=== PATIENT | male | born 1950 | race Caucasian/White ===

== ENCOUNTER 2016-11-18 20:33 | Inpatient (IN) | payer OTHER ==
[2016-11-18 22:09] VITALS: BMI 26.4
--- NOTE | 2016-11-18 23:53 | HP ---
COWS - Scale Resting Pulse: 0= [place] 80 or Below Sweatin= Chills/Flushing Restless Observation: 3= Extraneous Movement Pupil Size: 0= Normal to Room Light Bone or Joint Aches: 1= Mild Discomfort Runny Nose/ Eye Tearin= Runny Nose/Eyes GI Upset > 30mins: 1= Stomach Cramp Tremor Observation: 2= Slight Tremor Visible Yawning Observation: 2= >3x During Session Anxiety or Irritability: 2=Irritable/Anxious Goose Flesh Skin: 3=Piloerection COWS Score: 17 Admission ROS S - [facility] Chief Complaint: WITHDRAWAL SYMPTOMS Allergies/Adverse Reactions: Allergies Allergy/AdvReac Type Severity Reaction Status Date / Time No Known Allergies Allergy Verified 01/20/15 18:29 History of Present Illness: 66 Y.O. MAN WITH AN EXTENSIVE HISTORY OF DRUG DEPENDENCE IS SEEKING DETOX. HE REPORTS HE DOES NOT HAVE A SIGNIFICANT PERIOD OF SOBRIETY. HE REPORTS HE HE OVERDOSED TODAY, NARCAN WAS ADMINISTERED AND HE WAS TAKEN TO [facility]. Exam Limitations: No Limitations - Ebola screening Have you traveled outside of the country in the last 21 days: No (N) Have you had contact with anyone from an Ebola affected area: No Have you been sick,other than usual withdrawal symptoms: No Do you have a fever: No - Review of Systems Constitutional: Loss of Appetite, Changes in sleep EENT: reports: Tearing, Nose Congestion Respiratory: reports: No Symptoms reported Cardiac: reports: No Symptoms Reported GI: reports: Nausea, Abdominal cramping : reports: Other (HESITANCY) Musculoskeletal: reports: Back Pain Integumentary: reports: No Symptoms Reported Neuro: reports: No Symptoms reported, Headache Endocrine: reports: No Symptoms Reported Hematology: reports: No Symptoms Reported Psychiatric: reports: Orientated x3, Depressed Other Systems: Reviewed and Negative Patient History - Patient Medical History Hx Anemia: No Hx Asthma: No Hx Chronic Obstructive Pulmonary Disease (COPD): No Hx Cancer: No Hx Cardiac Disorders: No Hx Congestive Heart Failure: No Hx Hypertension: Yes (on med) Hx Hypercholesterolemia: No Hx Pacemaker: No HX Cerebrovascular Accident: No Hx Seizures: No Hx Dementia: No Hx Diabetes: No Hx Gastrointestinal Disorders: No Hx Liver Disease: No Hx Genitourinary Disorders: No Hx Sexually Transmitted Disorders: No Hx Renal Disease (ESRD): No Hx Thyroid Disease: No Hx Human Immunodeficiency Virus (HIV): No (last 2011 ) Hx Hepatitis C: Yes Hx Depression: Yes Hx Suicide Attempt: No Hx Bipolar Disorder: No Hx Schizophrenia: No Other Medical History: BPH - Patient Surgical History Past Surgical History: Yes Hx Neurologic Surgery: No Hx Cataract Extraction: No Hx Cardiac Surgery: No Hx Lung Surgery: No Hx Breast Surgery: No Hx Breast Biopsy: No Hx Abdominal Surgery: No Hx Appendectomy: No Hx Cholecystectomy: No Hx Genitourinary Surgery: No Hx Orthopedic Surgery: Yes (total knee replacement in 2006.joint disease) Anesthesia Reaction: No - PPD History Previous Implant?: Yes Documented Results: Negative w/proof Implanted On Prior R Admission?: Yes Date: 01/22/15 Results: 0 PPD to be Administered?: Yes - Reproductive History Patient is a Female of Child Bearing Age (11 -55 yrs old): No - Smoking Cessation Smoking history: Current every day smoker Have you smoked in the past 12 months: Yes Aproximately how many cigarettes per day: 5 Cigars Per Day: 0 Hx Chewing Tobacco Use: No Initiated information on smoking cessation: Yes 'Breaking Loose' booklet given: 11/19/16 - Substance & Tx. History Hx Alcohol Use: No Hx Substance Use: Yes Substance Use Type: Heroin Hx Substance Use Treatment: Yes (Detox and rehab ) - Substances Abused Heroin Route: Injection Frequency: 3-6 times per week Amount used: 1 bundle Age of first use: 19 Date of Last Use: 11/18/16 Family Disease History - Family Disease History Family Disease History: Heart Disease: Mother, CA: Grandparent (alcohol), Respiratory: Brother (alcohol- ), Other: Grandparent Admission Physical Exam S - Vital Signs Vital Signs: Vital Signs - 24 hr 11/18/16 22:06 Temperature 96.1 F L Pulse Rate 68 Respiratory 20 Rate Blood Pressure 162/78 - Physical General Appearance: Yes: Mild Distress, Tremorous, Irritable, Anxious HEENTM: Yes: Nasal Congestion, Rhinorrhea Respiratory: Yes: Chest Non-Tender, Lungs Clear, Normal Breath Sounds, No Accessory Muscle Use Neck: Yes: No masses,lesions,Nodules, Trachea in good position Breast: Yes: Breast Exam Deferred Cardiology: Yes: Regular Rhythm, Regular Rate, S1, S2 Abdominal: Yes: Non Tender, Flat, Soft Genitourinary: Yes: Hesitency Back: Yes: Within Normal Limits Musculoskeletal: Yes: Within Normal Limits, Back pain Extremities: Yes: Tremors Neurological: Yes: Alert, Motor Strength 5/5 Integumentary: Yes: Track Hernandez Lymphatic: Yes: Within Normal Limits - Diagnostic (1) BPH (benign prostatic hypertrophy) Current Visit: Yes Status: Chronic (2) Essential hypertension Current Visit: Yes Status: Chronic (3) Opioid dependence with withdrawal Current Visit: Yes Status: Chronic Cleared for Admission [facility] - Detox or Rehab [facility] Level of Care: Medically Managed Detox Regimen/Protocol: Methadone [facility] Breath Alcohol Content Breath Alcohol Content: 0 Urine Drug Screen - Results Drug Screen Negative: No Urine Drug Screen Results: CLEMENTE-Cocaine, OPI-Opiates, MTD-Methadone
[2016-11-19] MEDS ORDERED: diphenhydrAMINE HCL 50 MG CAPSULE PO PRN (00:03)
[2016-11-19] MEDS ORDERED: MENTHOL/PHENOL 1 EACH UD MM PRN (00:03)
[2016-11-19] MEDS ORDERED: MAG HYDROX/AL HYDROX/SIMETH 30 ML UNIT-DOSE CUP PO PRN (00:03)
[2016-11-19] MEDS ORDERED: METHADONE HCL 10 MG TABLET (FOR DETOX USE ONLY) PO ONE ×3 (00:03→23:00)
[2016-11-19] MEDS ORDERED: MAGNESIUM CITRATE 300 ML BOTTLE PO PRN (00:03)
[2016-11-19] MEDS ORDERED: MAGNESIUM HYDROX 2400MG/30ML ORAL SUSPENSION 30 ML CUP PO PRN (00:03)
[2016-11-19] MEDS ORDERED: IBUPROFEN 400 MG TABLET (FP) PO PRN (00:03)
[2016-11-19] MEDS ORDERED: ACETAMINOPHEN 325 MG TABLET (FP) PO PRN (00:03)
[2016-11-19] MEDS ORDERED: P-EPHED 60MG/TRIPROLIDI 2.5MG TABLET PO PRN (00:03)
[2016-11-19] MEDS ORDERED: guaiFENesin/D-METHORPHAN HB 10 ML UNIT-DOSE CUPS PO PRN (00:03)
[2016-11-19] MEDS ORDERED: LOPERAMIDE HCL 2 MG CAPSULE PO PRN (00:03)
[2016-11-19] MEDS: diazePAM 5 MG TABLET PO PRN ×3 (03:29→22:15)
--- NOTE | 2016-11-19 08:02 | CONSULT ---
[facility] Psychiatric Consult - Data Date of interview: 11/19/16 Admission source: [facility] Identifying data: This is 66 years old male with no psychiatric hospitalization history intoxicated with: Opioids and Nicotine Substance Abuse History: - Smoking Cessation. Smoking history: Current every day smoker. Have you smoked in the past 12 months: Yes. Aproximately how many cigarettes per day: 5. Cigars Per Day: 0. Hx Chewing Tobacco Use: No. Initiated information on smoking cessation: Yes. 'Breaking Loose' booklet given : 11/19/16. - Substance & Tx. History. Hx Alcohol Use: No. Hx Substance Use: Yes. Substance Use Type: Heroin. Hx Substance Use Treatment: Yes (Detox and rehab ). - Substances Abused. Heroin. Route: Injection. Frequency: 3-6 times per week. Amount used: 1 bundle. Age of first use: 19. Date of Last Use : 11/18/16 Medical History: BPH, HTN, HepC+, Psychiatric History: Denies Physical/Sexual Abuse/Trauma History: Denies Additional Comment: Observation. Detox Care Protocol Mental Status Exam - Mental Status Exam Alert and Oriented to: Person Cognitive Function: Fair Patient Appearance: Unkempt Mood: Sad Affect: Flat Patient Behavior: Sedated Speech Pattern: Delayed Voice Loudness: Mildly Soft/Quiet Thought Process: Circumstantial Thought Disorder: Being Controlled Hallucinations: Denies Suicidal Ideation: Denies Homicidal Ideation: Denies Insight/Judgement: Fair Sleep: Difficulty falling asleep Appetite: Fair Muscle strength/Tone: Normal Gait/Station: Shuffling Additional Comments: Observation. Detox Care Protocol Psychiatric Findings - Problem List (Vir[place] 1, 2,3) (1) Opioid dependence with withdrawal Current Visit: Yes Status: Chronic (2) Heroin dependence Current Visit: No Status: Acute (3) Nicotine dependence Current Visit: No Status: Acute (4) Drug-induced mood disorder Current Visit: Yes Status: Suspected - Initial Treatment Plan Initial Treatment Plan: Observation. Detox Care Protocol
[2016-11-19] MEDS ORDERED: TAMSULOSIN HCL 0.4 MG CAP.ER.24H (FP) PO ONE (09:00)
[2016-11-19] MEDS: PRENATAL VITAMINS W/ FOLIC ACID TABLET (FP) PO SCH (10:32)
--- NOTE | 2016-11-19 10:47 | PN ---
S CIWA - CIWA Score Nausea/Vomitin Muscle Tremors: 3 Anxiety: 3 Agitation: 3 Paroxysmal Sweats: 3 Orientation: 0-Oriented Tacttile Disturbances: 1-Very Mild Itch/Numbness Auditory Disturbances: 0-None Visual Disturbances: 0-None Headache: 0-None Present CIWA-Ar Total Score: 15 BHS Progress Note (SOAP) Subjective: interrupted sleep, sweats anxiety Objective: 11/19/16 10:47 Vital Signs Temperature 98.1 F 11/19/16 10:00 Pulse Rate 79 11/19/16 10:00 Respiratory Rate 16 11/19/16 10:00 Blood Pressure 138/88 11/19/16 10:00 O2 Sat by Pulse Oximetry (%) Vital Signs Temperature 98.1 F 11/19/16 10:00 Pulse Rate 79 11/19/16 10:00 Respiratory Rate 16 11/19/16 10:00 Blood Pressure 138/88 11/19/16 10:00 O2 Sat by Pulse Oximetry (%) pt aox3 in nad lying in bed Assessment: 11/19/16 10:48 withdrawl sx's anxiety Plan: cont. detox increase fluids reassurance vistaril prn valium prn f/up pending labs
--- NOTE | 2016-11-19 11:51 | EKG ---
Test Reason : Blood Pressure : / mmHG Vent. Rate : 054 BPM Atrial Rate : 054 BPM P-R Int : 190 ms QRS Dur : 104 ms QT Int : 484 ms P-R-T Axes : 049 069 039 degrees QTc Int : 458 ms SINUS BRADYCARDIA MINIMAL VOLTAGE CRITERIA FOR LVH, MAY BE NORMAL VARIANT BORDERLINE ECG NO PREVIOUS ECGS AVAILABLE Confirmed by MARTIN TSAI MD ([id number]) on 11/19/2016 11:50:47 AM Referred By: Confirmed By:MARTIN TSAI MD
[2016-11-19] MEDS: THIAMINE HCL 100 MG TABLET (FP) PO SCH (22:14)
[2016-11-20] MEDS ORDERED: METHADONE HCL 10 MG TABLET (FOR DETOX USE ONLY) PO ONE (10:00)
[2016-11-20 10:12] LABS: ALBUMIN 2.9 g/dl (3.4-5.0); ANION GAP 6 (8-16); CALCIUM 8.4 mg/dL (8.5-10.1); CO2 29 mmol/L (21-32); GLUCOSE,RANDOM 80 mg/dL (74-106); SGOT/AST 12 U/L (15-37); SGPT/ALT 14 U/L (12-78)
[2016-11-20 10:14] LABS: ALK PHOS 97 U/L (45-117); BILIRUBIN,TOTAL 0.3 mg/dL (0.2-1.0); TOT PROT 6.7 g/dl (6.4-8.2)
--- NOTE | 2016-11-20 10:15 | PN ---
BHS COWS - Scale Resting Pulse: 0= [place] 80 or Below Sweatin=Flushed/Facial Moisture Restless Observation: 1= Difficult to Sit Still Pupil Size: 0= Normal to Room Light Bone or Joint Aches: 2= Severe Diffuse Aches Runny Nose/ Eye Tearin= Runny Nose/Eyes GI Upset > 30mins: 0= None Tremor Observation of Outstretched Hands: 2= Slight Tremor Visible Yawning Observation: 2= >3x During Session Anxiety or Irritability: 2=Irritable/Anxious Goose Flesh Skin: 0=Smooth Skin COWS Score: 13 BHS Progress Note (SOAP) Subjective: sluggish yawning sweats shakes interrupted sleep irritable Objective: 11/20/16 10:14 Vital Signs Temperature 98.2 F 11/20/16 09:59 Pulse Rate 73 11/20/16 09:59 Respiratory Rate 20 11/20/16 09:59 Blood Pressure 148/83 11/20/16 09:59 O2 Sat by Pulse Oximetry (%) Laboratory Tests 11/20/16 07:00 Sodium 142 Potassium 4.2 Chloride 107 Carbon Dioxide 29 Anion Gap 6 L BUN 14 D Creatinine 1.0 Creat Clearance w eGFR > 60 Random Glucose 80 Calcium 8.4 L Total Bilirubin 0.3 D AST 12 L D ALT 14 D Alkaline Phosphatase 97 D Total Protein 6.7 D Albumin 2.9 L D rest of labs pending awake/alert ambulating no acute distress Assessment: 11/20/16 10:16 withdrawal sx Plan: continue detox increase fluids labs pending
[2016-11-20] MEDS: PRENATAL VITAMINS W/ FOLIC ACID TABLET (FP) PO SCH (10:18)
[2016-11-20] MEDS: diazePAM 5 MG TABLET PO PRN ×2 (10:18→22:12)
[2016-11-20 10:26] LABS: MCH 30.7 pg (25.7-33.7); MCHC 33.6 g/dl (32.0-35.9); MEAN CELL VOLUME 91.5 fl (80-96); MEAN PLT VOLUME 7.4 fl (7.5-11.1); PLATELET COUNT 285 K/MM3 (134-434); RDW 15.4 % (11.9-15.9); WHITE BLOOD COUNT 9.1 K/mm3 (4.0-10.0)
[2016-11-20 15:45] LABS: URINE APPEARANCE CLEAR; URINE BILIRUBIN NEGATIVE (NEGATIVE); URINE BLOOD NEGATIVE (NEGATIVE); URINE COLOR YELLOW; URINE GLUCOSE (UA) NEGATIVE (NEGATIVE); URINE KETONE NEGATIVE (NEGATIVE); URINE NITRITE NEGATIVE (NEGATIVE); URINE UROBILINOGEN NEGATIVE E.U./dl (0.2-1.0)
[2016-11-20 16:00] LABS: URINE LEUK ESTERASE TRACE (NEGATIVE); URINE PROTEIN 1+ (NEGATIVE)
[2016-11-20 16:12] LABS: URINE MUCUS RARE; URINE RBC 2 /hpf (0-3); URINE WBC 12 /hpf (3-5)
[2016-11-20] MEDS: THIAMINE HCL 100 MG TABLET (FP) PO SCH (22:11)
[2016-11-21] MEDS ORDERED: METHADONE HCL 5 MG TABLET (FOR DETOX USE ONLY) PO ONE (10:00)
--- NOTE | 2016-11-21 10:07 | PN ---
BHS Progress Note (SOAP) Subjective: agitation anxiety sweats interrupted sleep Objective: 11/21/16 10:06 Vital Signs Temperature 97.9 F 11/21/16 09:54 Pulse Rate 74 11/21/16 09:54 Respiratory Rate 18 11/21/16 09:54 Blood Pressure 131/78 11/21/16 09:54 O2 Sat by Pulse Oximetry (%) awake/alert ambulating no acute distress Assessment: 11/21/16 10:06 withdrawal sx Plan: continue detox increase fluids
[2016-11-21] MEDS: PRENATAL VITAMINS W/ FOLIC ACID TABLET (FP) PO SCH (10:17)
[2016-11-21] MEDS ORDERED: TRIMETHOBENZAMIDE HCL 200MG/2ML INJ IM ONE (14:20)
[2016-11-21] MEDS ORDERED: TRIMETHOBENZAMIDE HCL 300 MG CAPSULE PO PRN (14:21)
[2016-11-21] MEDS: diazePAM 5 MG TABLET PO PRN (19:08)
[2016-11-21] MEDS: THIAMINE HCL 100 MG TABLET (FP) PO SCH (23:15)
[2016-11-22] MEDS ORDERED: METHADONE HCL 5 MG TABLET (FOR DETOX USE ONLY) PO ONE (10:00)
[2016-11-22] MEDS: PRENATAL VITAMINS W/ FOLIC ACID TABLET (FP) PO SCH (10:09)
[2016-11-22] MEDS ORDERED: ONDANSETRON 4 MG TABLET PO PRN (13:30)
--- NOTE | 2016-11-22 13:33 | PN ---
BHS Progress Note (SOAP) Subjective: nausea, sweats, interrupted sleep, anxiety, trmeors, backache Objective: 11/22/16 13:32 Vital Signs - 8 hr 11/22/16 11/22/16 06:18 09:55 Temperature 97.9 F 97 F L Pulse Rate 80 102 H Respiratory 18 20 Rate Blood Pressure 135/75 161/97 Laboratory Tests 11/20/16 11/20/16 11/20/16 07:00 07:00 07:00 WBC 9.1 RBC 3.58 L Hgb 11.0 L D Hct 32.8 L D MCV 91.5 MCHC 33.6 RDW 15.4 Plt Count 285 MPV 7.4 L Sodium 142 Potassium 4.2 Chloride 107 Carbon Dioxide 29 Anion Gap 6 L BUN 14 D Creatinine 1.0 Creat Clearance w eGFR > 60 Random Glucose 80 Calcium 8.4 L Total Bilirubin 0.3 D AST 12 L D ALT 14 D Alkaline Phosphatase 97 D Total Protein 6.7 D Albumin 2.9 L D Urine Color Urine Appearance Urine pH Ur Specific [place] Urine Protein Urine Glucose (UA) Urine Ketones Urine Blood Urine Nitrite Urine Bilirubin Urine Urobilinogen Ur Leukocyte Esterase Urine RBC Urine WBC Ur Epithelial Cells Urine Mucus RPR Titer Nonreactive 11/20/16 11:15 WBC RBC Hgb Hct MCV MCHC RDW Plt Count MPV Sodium Potassium Chloride Carbon Dioxide Anion Gap BUN Creatinine Creat Clearance w eGFR Random Glucose Calcium Total Bilirubin AST ALT Alkaline Phosphatase Total Protein Albumin Urine Color Yellow Urine Appearance Clear Urine pH 5.0 Ur Specific [place] 1.018 Urine Protein 1+ H Urine Glucose (UA) Negative Urine Ketones Negative Urine Blood Negative Urine Nitrite Negative Urine Bilirubin Negative Urine Urobilinogen Negative Ur Leukocyte Esterase Trace H Urine RBC 2 Urine WBC 12 Ur Epithelial Cells Rare Urine Mucus Rare RPR Titer Laboratory Tests 11/20/16 11/20/16 11/20/16 07:00 07:00 07:00 WBC 9.1 RBC 3.58 L Hgb 11.0 L D Hct 32.8 L D MCV 91.5 MCHC 33.6 RDW 15.4 Plt Count 285 MPV 7.4 L Sodium 142 Potassium 4.2 Chloride 107 Carbon Dioxide 29 Anion Gap 6 L BUN 14 D Creatinine 1.0 Creat Clearance w eGFR > 60 Random Glucose 80 Calcium 8.4 L Total Bilirubin 0.3 D AST 12 L D ALT 14 D Alkaline Phosphatase 97 D Total Protein 6.7 D Albumin 2.9 L D Urine Color Urine Appearance Urine pH Ur Specific [place] Urine Protein Urine Glucose (UA) Urine Ketones Urine Blood Urine Nitrite Urine Bilirubin Urine Urobilinogen Ur Leukocyte Esterase Urine RBC Urine WBC Ur Epithelial Cells Urine Mucus RPR Titer Nonreactive 11/20/16 11:15 WBC RBC Hgb Hct MCV MCHC RDW Plt Count MPV Sodium Potassium Chloride Carbon Dioxide Anion Gap BUN Creatinine Creat Clearance w eGFR Random Glucose Calcium Total Bilirubin AST ALT Alkaline Phosphatase Total Protein Albumin Urine Color Yellow Urine Appearance Clear Urine pH 5.0 Ur Specific [place] 1.018 Urine Protein 1+ H Urine Glucose (UA) Negative Urine Ketones Negative Urine Blood Negative Urine Nitrite Negative Urine Bilirubin Negative Urine Urobilinogen Negative Ur Leukocyte Esterase Trace H Urine RBC 2 Urine WBC 12 Ur Epithelial Cells Rare Urine Mucus Rare RPR Titer Assessment: 11/22/16 13:32 withdrawal sx, anemia, hypoalbuminema Plan: cont detox, ensure plus, encourage fluids, iron pills, zofran,
[2016-11-22] MEDS: cloNIDine HCL 0.1 MG TABLET PO SCH ×2 (14:33→22:20)
[2016-11-22] MEDS: FERROUS GLUCONATE 324 MG TAB (FP) PO SCH (17:20)
[2016-11-22] MEDS: THIAMINE HCL 100 MG TABLET (FP) PO SCH (22:20)
[2016-11-23 09:50] LABS: URINE APPEARANCE CLEAR; URINE BILIRUBIN NEGATIVE (NEGATIVE); URINE BLOOD NEGATIVE (NEGATIVE); URINE COLOR YELLOW; URINE GLUCOSE (UA) NEGATIVE (NEGATIVE); URINE KETONE NEGATIVE (NEGATIVE); URINE NITRITE NEGATIVE (NEGATIVE); URINE PROTEIN NEGATIVE (NEGATIVE); URINE UROBILINOGEN NEGATIVE E.U./dl (0.2-1.0)
[2016-11-23 09:57] LABS: URINE LEUK ESTERASE 1+ (NEGATIVE)
[2016-11-23] MEDS ORDERED: METHADONE HCL 10 MG TABLET (FOR DETOX USE ONLY) PO ONE (10:00)
[2016-11-23 10:02] LABS: URINE MUCUS RARE; URINE RBC 1 /hpf (0-3); URINE WBC 17 /hpf (3-5)
--- NOTE | 2016-11-23 10:12 | PN ---
BHS Progress Note (SOAP) Subjective: no complaints Objective: 11/23/16 10:09 Vital Signs - 8 hr 11/23/16 11/23/16 03:30 06:00 Temperature 97.7 F Pulse Rate 55 L Respiratory 18 18 Rate Blood Pressure 124/67 Laboratory Tests 11/20/16 11/20/16 11/20/16 07:00 07:00 07:00 WBC 9.1 RBC 3.58 L Hgb 11.0 L D Hct 32.8 L D MCV 91.5 MCHC 33.6 RDW 15.4 Plt Count 285 MPV 7.4 L Sodium 142 Potassium 4.2 Chloride 107 Carbon Dioxide 29 Anion Gap 6 L BUN 14 D Creatinine 1.0 Creat Clearance w eGFR > 60 Random Glucose 80 Calcium 8.4 L Total Bilirubin 0.3 D AST 12 L D ALT 14 D Alkaline Phosphatase 97 D Total Protein 6.7 D Albumin 2.9 L D Urine Color Urine Appearance Urine pH Ur Specific [place] Urine Protein Urine Glucose (UA) Urine Ketones Urine Blood Urine Nitrite Urine Bilirubin Urine Urobilinogen Ur Leukocyte Esterase Urine RBC Urine WBC Ur Epithelial Cells Urine Mucus RPR Titer Nonreactive 11/20/16 11/23/16 11:15 08:00 WBC RBC Hgb Hct MCV MCHC RDW Plt Count MPV Sodium Potassium Chloride Carbon Dioxide Anion Gap BUN Creatinine Creat Clearance w eGFR Random Glucose Calcium Total Bilirubin AST ALT Alkaline Phosphatase Total Protein Albumin Urine Color Yellow Yellow Urine Appearance Clear Clear Urine pH 5.0 6.0 Ur Specific [place] 1.018 1.015 Urine Protein 1+ H Negative Urine Glucose (UA) Negative Negative Urine Ketones Negative Negative Urine Blood Negative Negative Urine Nitrite Negative Negative Urine Bilirubin Negative Negative Urine Urobilinogen Negative Negative Ur Leukocyte Esterase Trace H 1+ H Urine RBC 2 1 Urine WBC 12 17 Ur Epithelial Cells Rare Rare Urine Mucus Rare Rare RPR Titer Assessment: 11/23/16 10:10 completed detox, medically stable, Plan: d/c today, nutritional counseling provided, f/u PCP for abnormal bloodwork
--- NOTE | 2016-11-23 10:14 | DS ---
[facility] Detox Discharge Summary Admission Date: 11/18/16 Discharge Date: 11/23/16 - History Present History: Opioid Dependence Pertinent Past History: hep C , HTN, BPH - Physical Exam Results Vital Signs: Vital Signs Temperature 97.7 F 11/23/16 06:00 Pulse Rate 55 L 11/23/16 06:00 Respiratory Rate 18 11/23/16 06:00 Blood Pressure 124/67 11/23/16 06:00 O2 Sat by Pulse Oximetry (%) Pertinent Admission Physical Exam Findings: withdrawal sx - Treatment Hospital Course: Detox Protocol Followed, Detoxed Safely, Responded well, Discharged Condition Good, Rehab Referral Accepted Patient has Accepted a Rehab Referral to: Yes - Medication Discharge Medications: Ambulatory Orders Diltiazem HCl [Tiazac] 360 mg PO DAILY #30 capsule.er 01/25/15 Ranitidine [Zantac -] 150 mg PO BID #60 tablet 01/25/15 Tamsulosin HCl [Flomax -] 0.4 mg PO HS 11/19/16 - Diagnosis (1) BPH (benign prostatic hypertrophy) Current Visit: Yes Status: Chronic (2) Essential hypertension Current Visit: Yes Status: Chronic (3) Opioid dependence with withdrawal Current Visit: Yes Status: Chronic (4) Drug-induced mood disorder Current Visit: Yes Status: Suspected (5) Hepatitis C Current Visit: No Status: Acute (6) Heroin dependence Current Visit: No Status: Acute (7) Nicotine dependence Current Visit: No Status: Acute - AMA Did Patient Leave Against Medical Advice: No
[2016-11-23] MEDS: PRENATAL VITAMINS W/ FOLIC ACID TABLET (FP) PO SCH (10:17)
[2016-11-23] MEDS: FERROUS GLUCONATE 324 MG TAB (FP) PO SCH (10:17)
[2016-11-23] MEDS: cloNIDine HCL 0.1 MG TABLET PO SCH (10:22)
[2016-11-23 10:48] VITALS: BP 129/76; PULSE 98; TEMP 97.5
[2016-11-24] MEDS ORDERED: METHADONE HCL 5 MG TABLET (FOR DETOX USE ONLY) PO ONE (06:00)
== END 2016-11-23 11:46 | disposition home or self-care (01) | DRG 897 ==
LOC: YASAS 20:33 → Y6N 23:46
PROVIDERS: ADMIT Internal Medicine; ATTEND Internal Medicine
PROC: HZ2ZZZZ Detoxification Services for Substance Abuse Treatment (ICD-10-PCS; principal; 2016-11-18)
DX: F11.23 Opioid dependence with withdrawal (principal); F17.210 Nicotine dependence, cigarettes, uncomplicated; F19.24 Other psychoactive substance dependence with psychoactive substance-induced mood disorder; F41.9 Anxiety disorder, unspecified; N40.0 Benign prostatic hyperplasia without lower urinary tract symptoms; I10 Essential (primary) hypertension; B18.2 Chronic viral hepatitis C; D64.9 Anemia, unspecified; E88.09 Other disorders of plasma-protein metabolism, not elsewhere classified; Z96.659 Presence of unspecified artificial knee joint
CPT/HCPCS: 36415; 80053; 81003; 81015; 85027; 86593; 93005; 93010